=== PATIENT | female | born 1965 | race Caucasian/White ===

== ENCOUNTER 2018-01-02 08:25 | Outpatient (CLI) | payer OTHER ==
[~2018-01-02] VITALS: Ht 160 cm; Wt 113.4 kg
[~2018-01-02 08:25] MED LIST: CIMBALTA PO; EVISTA60 MG PO; OSTERA TABLET1 EACH PO; SYNTHROID100 MCG PO; ZOCOR20 MG PO
== END 2018-01-02 08:45 | disposition home or self-care (01) ==
LOC: OFIC 805 08:25
DX: S00.33XS Contusion of nose, sequela (principal); X58.XXXS Exposure to other specified factors, sequela; C73 Malignant neoplasm of thyroid gland; R49.0 Dysphonia

== ENCOUNTER 2018-01-10 11:38 | Outpatient (CLI) | payer OTHER ==
[~2018-01-10] VITALS: Ht 152.4 cm; Wt 113.4 kg
== END 2018-01-10 12:00 | disposition home or self-care (01) ==
LOC: OFIC 805 11:38
DX: R49.0 Dysphonia (principal); C73 Malignant neoplasm of thyroid gland; J38.7 Other diseases of larynx

== ENCOUNTER 2019-02-12 12:32 | Outpatient (CLI) | payer OTHER ==
[~2019-02-12] VITALS: Ht 152.4 cm; Wt 113.4 kg
== END 2019-02-12 12:40 | disposition home or self-care (01) ==
LOC: OFIC 805 12:32
DX: R49.0 Dysphonia (principal); J04.30 Supraglottitis, unspecified, without obstruction; R05 Cough

== ENCOUNTER → 2019-03-02 | Outpatient (CLI) | payer OTHER | END | disposition home or self-care (01) | LOC: NUCLEAR 11:00 | DX: C73 Malignant neoplasm of thyroid gland (principal) | CPT/HCPCS: 79005; A9517 ==

== ENCOUNTER 2023-08-08 15:54 | Emergency (ER) | payer OTHER ==
[~2023-08-08] VITALS: Ht 160 cm; Wt 120.2 kg
[2023-08-08] MEDS ORDERED: LEVOTHYROXINE175 MC1 PO (17:14)
[2023-08-08] MEDS ORDERED: LIPITOR20 MG PO (17:14)
[2023-08-08] MEDS ORDERED: AVAPRO75 MG PO (17:15)
[2023-08-08] MEDS ORDERED: DICLOFENAC POTA50 MG PO (21:28)
[2023-08-08] MEDS ORDERED: NORFLEX100MG PO (21:28)
== END 2023-08-08 21:34 | disposition home or self-care (01) ==
LOC: ER 15:54
DX: M94.0 Chondrocostal junction syndrome [Tietze] (principal); M54.9 Dorsalgia, unspecified; I10 Essential (primary) hypertension; M79.7 Fibromyalgia